=== PATIENT | male | born 1980 | race Caucasian/White ===

== ENCOUNTER 2017-06-25 04:49 | Emergency (ER) | payer BC ==
[~2017-06-25] VITALS: Ht 170.2 cm; Wt 131.5 kg
[2017-06-25 06:12] VITALS: BP 141/82
== END 2017-06-25 06:14 | disposition home or self-care (01) ==
LOC: ED 05:46
DX: S61.452A Open bite of left hand, initial encounter (principal); S61.451A Open bite of right hand, initial encounter; W54.0XXA Bitten by dog, initial encounter; Y93.89 Activity, other specified; Y99.8 Other external cause status; Y92.89 Other specified places as the place of occurrence of the external cause
CPT/HCPCS: 99284

== ENCOUNTER 2017-08-18 08:19 | Emergency (ER) | payer BC ==
[~2017-08-18] VITALS: Ht 172.7 cm; Wt 128.7 kg
[2017-08-18 08:21] VITALS: BP 143/89
[2017-08-18] MEDS ORDERED: PROPARACAINE OPHTH 0.5%, 15ML ONE (09:10)
[2017-08-18] MEDS ORDERED: FLUORESCEIN OPHTHALMIC 1 MG STRIP EACHEYE ONE (09:30)
[2017-08-18] MEDS ORDERED: PROPARACAINE OPHTH 0.5%, 15ML EACHEYE ONE (09:30)
[2017-08-18] MEDS ORDERED: FLUORESCEIN/BENOXINATE 5 ML DROPS EACHEYE ONE (09:30)
== END 2017-08-18 09:59 | disposition home or self-care (01) ==
LOC: ED 09:53
DX: H10.021 Other mucopurulent conjunctivitis, right eye (principal)
CPT/HCPCS: 99283

== ENCOUNTER 2020-09-30 23:43 | Emergency (ER) | payer SELFPAY ==
[~2020-09-30] VITALS: Ht 170.2 cm; Wt 119.0 kg
[2020-09-30 23:54] VITALS: BP 123/84
--- NOTE | 2020-10-01 01:12 | NUR ---
CC OF "SPIDER BITE TO MY NECK" 2 DAYS AGO. PT STATES AREA HAS BECOME MORE IDALIA AND SWOLLEN AND PAINFUL. RAISED IDALIA BUMMP NOTED TO UPPER NECK IN HAIR. SCAB TO MIDDLE. PT STATES "IM VERY SURE IT WAS A SPIDER".
== END 2020-10-01 02:29 | disposition home or self-care (01) ==
LOC: ED 10-01 02:02
DX: S10.96XA Insect bite of unspecified part of neck, initial encounter (principal); L03.221 Cellulitis of neck; W57.XXXA Bitten or stung by nonvenomous insect and other nonvenomous arthropods, initial encounter; Y93.89 Activity, other specified; Y92.89 Other specified places as the place of occurrence of the external cause; Y99.8 Other external cause status
CPT/HCPCS: 99283